=== PATIENT | female | born 1940 | race Caucasian/White ===

== ENCOUNTER 2016-10-13 14:20 | Emergency (ER) | payer MEDICARE, OTHER | END 2016-10-13 15:30 | disposition left against medical advice (07) | LOC: D.ER 14:20 | DX: T14.8 Other injury of unspecified body region (principal) ==

== ENCOUNTER → 2017-07-01 18:19 | Outpatient (CLI) | payer MEDICARE, OTHER | END | disposition home or self-care (01) | LOC: D.MAMMO 15:45 | DX: Z12.31 Encounter for screening mammogram for malignant neoplasm of breast (principal) ==